=== PATIENT | male | born 1995 | race Caucasian/White ===

== ENCOUNTER 2020-08-26 13:34 | Emergency (ER) | payer BC ==
[~2020-08-26] VITALS: Ht 170.2 cm; Wt 90.7 kg
--- NOTE | 2020-08-26 13:50 | NUR ---
ON & OFF ABDOMINAL PAIN SINCE YESTERDAY, SELF MEDICATED WITH LAXATIVE FOR CONSTIPATION. PATIENT A/OX4, BREATHING EVEN AND UNLABORED, NOS OB NOTED.
--- NOTE | 2020-08-26 14:05 | NUR ---
DR. GARCIA AT BEDSIDE FOR EVAL. IV LINE ESTABLISHED, BLOOD DRAWN AND SENT TO LAB.
[2020-08-26 14:12] LABS: BASOPHILS % (AUTO) 0.6 % (0.0-2.0); EOSINOPHILS % (AUTO) 1.9 % (0.0-6.0); HEMATOCRIT 45 % (39-51); HEMOGLOBIN 15.1 g/dL (13.5-17.5); LYMPHOCYTES # (AUTO) 1.6 /CMM (0.8-4.8); MEAN CORPUSCULAR HGB CONC 34 g/dl (31.0-36.0); MEAN CORPUSCULAR VOLUME 81 fL (80-96); MONOCYTES # (AUTO) 0.7 /CMM (0.1-1.30); MONOCYTES % (AUTO) 8.4 % (2.0-12.0); NEUTROPHILS # (AUTO) 5.6 /CMM (1.8-8.9); NEUTROPHILS % (AUTO) 69.1 % (43.0-81.0); PLATELET COUNT (AUTO) 220 /CMM (150-450); RED BLOOD CELL COUNT(AUTO) 5.47 MIL/uL (4.5-6.0); WHITE BLOOD COUNT (AUTO) 8.1 K/uL (4.3-11.0)
[2020-08-26 14:17] LABS: CALCIUM, SERUM 9.4 mg/dL (8.5-10.1); CREATININE 1.8 mg/dL (0.6-1.3); POTASSIUM 3.4 mmol/L (3.5-5.1)
[2020-08-26 14:23] LABS: ALBUMIN 4.3 g/dL (3.4-5.0); BILIRUBIN,DIRECT 0.1 mg/dL (0.0-0.2); BILIRUBIN,TOTAL 0.7 mg/dL (0.2-1.0); TOTAL PROTEIN, SERUM 8.4 g/dL (6.4-8.2)
[2020-08-26] MEDS ORDERED: IV NS 0.9% 1,000 ML BAG IV ONE (14:30)
--- NOTE | 2020-08-26 14:30 | NUR ---
CAME BACK FROM CT.
[2020-08-26 15:55] VITALS: BP 125/93
== END 2020-08-26 15:56 | disposition home or self-care (01) ==
LOC: ER 13:42
DX: R10.33 Periumbilical pain (principal)
CPT/HCPCS: 36415; 74176; 80048; 80076; 83690; 85025; 96360; 99284; J7030